=== PATIENT | female | born 1960 | race Caucasian/White ===

== ENCOUNTER → 2016-05-18 | Day surgery (SDC) | payer MEDICARE, MEDICAID ==
--- NOTE | 2016-05-12 23:07 | HP ---
DATE OF ADMISSION: 05/12/2016 HISTORY OF PRESENT ILLNESS: This is the second orthopedic outpatient admission for surgery for this 55-year- old female who is being brought in for an arthroscopic surgery of the right shoulder. The patient had suffered a strain and tear of the right shoulder rotator cuff, dating back to October of 2015, while she was moving and performing heavy lifting. The patient has a history of previous rotator cuff repair, was doing quite well until this accident occurred. She has gone through conservative treatment program through the orthopedic office, all of which has failed to advances this patient problems and she now has a positive MRI evaluation. She is now being scheduled for arthroscopic surgery of the right shoulder for recurrent rotator cuff tear and scheduled for a repair. Procedures have been outlined to her. She understands the risk and complications involved with that and has consented to the surgery. ALLERGIES: No known drug allergies. PAST MEDICAL HISTORY: This has been a healthy 55-year-old female. CURRENT MEDICATIONS: Include tramadol, hydrocodone 5/325, gabapentin, diclofenac, and Zanaflex 4 mg. PAST SURGICAL HISTORY: Positive. She has had previous right shoulder surgery dating back to 2012. She recently had right knee arthroscopic surgery dating back to January 2016. She notes no anesthesia complications or problems. She notes no medical changes since she had the last anesthesia. Her bleeding history is negative. Blood clot history is negative. SOCIAL HISTORY: Tobacco use. She is quarter pack per day smoker. She is a nondrinker. PHYSICAL EXAMINATION: GENERAL: Today, reveals a well-developed, well-nourished, 55-year-old female in moderate to severe distress. HEAD, EYES, EARS, NOSE, AND THROAT: Normocephalic. NECK: Supple. CHEST: Clear. COR: Regular rhythm and rate. ABDOMEN: Soft. : Intact. EXTREMITIES: Examination of the right shoulder reveals active abduction 110 degrees, active forward flexion 110 degrees, palpation over the greater tuberosity, right shoulder produces severe pain. She has positive Forte with +3 for pain. RADIOLOGY: MRI shows a positive recurrent rotator cuff tear and possible glenoid labral tear of the right shoulder. ASSESSMENT: Recurrent tear; rotator cuff, right shoulder; glenoid labral tear, right shoulder. PLAN: The patient is to undergo surgical arthroscopic surgery with rotator cuff repair and any indicated procedure. The procedures were outlined to the patient. She understands procedures and consent to it. MMODAL /[id number]
[~2016-05-18] MED LIST: Acetaminophen/oxyCODONE 325-5 MG Tab PO PRN; Cyclobenzaprine 10 MG Tab PO PRN; Dexamethasone 4 MG/ML SDV ONE; EPINEPHrine 1:1000 1 MG/ML 30 ML MDV ONE; EPINEPHrine 1:1000 1 MG/ML SDV ONE; HYDROmorphone 0.5 MG/0.5 ML Syringe IVPUSH PRN; Iodine/Sodium Iodide 2% Tincture 30 ML Bottle ONE; Ketorolac 30 MG/ML SDV IVPUSH PRN; Ketorolac 30 MG/ML SDV ONE; Lactated Ringers 1,000 ML IV SCH; Lactated Ringers 1,000 ML ONE; Lidocaine 1% 2 ML ONE; Lidocaine 1% 4 ML ONE; Lidocaine 1%/Sod Bicarbonate in NS 8.4% 1 ML Syringe IV PRN; Meperidine PF 50 MG/ML Syringe IVPUSH PRN; Midazolam 1 MG/ML 2 ML SDV ONE; Morphine 15 MG Tab.ER PO ONE; Neostigmine Methylsulfate 1 MG/ML 5 ML Syringe ONE; Ondansetron 4 MG/2 ML SDV IVPUSH PRN; Ondansetron 4 MG/2 ML SDV ONE; Phenylephrine 1% 10 MG/ML SDV ONE; Phenylephrine/Normal Saline 100 MCG/ML 10 ML Syringe ONE; Propofol 200 MG/20 ML SDV ONE; Rocuronium 50 MG/5 ML Vial ONE; Ropivacaine 0.5% 5 MG/ML 30 ML SDV ONE; Sodium Chloride 0.9% 10 ML Syringe FLUSH PRN; ceFAZolin 1 GM Vial ONE; diphenhydrAMINE 50 MG/ML SDV IVPUSH PRN; ePHEDrine/Normal Saline 25 MG/5 ML Syringe ONE; fentaNYL 100 MCG/2 ML SDV IVPUSH PRN; fentaNYL 100 MCG/2 ML SDV ONE; fentaNYL 250 MCG/5 ML SDV ONE
--- NOTE | 2016-05-18 07:16 | PCM.PREANE ---
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 Respiratory: Reports: no symptoms Cardiovascular: Reports: dyspnea on exertion GI: Reports: no symptoms Other: Reports: none - PHYSICAL ASSESSMENT HR: 62 O2 Sat by Pulse Oximetry: 97 RR: 16 BP: 114/65 Temp: 36.3 C Height: 1.68 m Weight: 83.461 kg NPO Status Date: 05/17/16 NPO Status Time: 00:00 ASA Class: 2 Mental Status: alert & oriented x3 Airway Class: Mallampati = 1 Dentition: Reports: normal dentition Thyro-Mental Finger Breadths: 3 Mouth Opening Finger Breadths: 3 ROM/Head Extension: full Respiratory Status: lungs clear to auscultation bilaterally Cardiovascular Status: regular rate & rhythm, normal S1, S2, no murmur, blood pressure WNL - LAB Values: on chart - ALLERGIES Allergies/Adverse Reactions: Allergies Allergy/AdvReac Type Severity Reaction Status Date / Time No Known Allergies Allergy Verified 05/17/16 15:31 - ANESTHESIA PLAN Preop Beta Josesito: No Anesthesia Type Planned: general anesthesia, regional block (interscalene for post-op pain control) - ACKNOWLEDGEMENTS Pt an appropriate candidate for the planned anesthesia: Yes Alternatives and risks of anesthesia discussed w pt/guardian: Yes Pt/Guardian understands and agree with anesthesia plan: Yes PreAnesthesia Questionnaire HEENT History: Reports: None Cardiovascular History: Reports: None Respiratory History: Reports: None Gastrointestinal History: Reports: GERD Genitourinary History: Reports: None SAL[employer]ERSON [employer] History: Reports: None Neurological History: Reports: None Psychiatric History: Reports: None Endocrine/Metabolic History: Reports: None Hematologic History: Reports: None Immunologic History: Reports: None Oncologic (Cancer) History: Reports: None Dermatologic History: Reports: None - Past Surgical History Head Surgeries/Procedures: Reports: None Musculoskeletal Surgical History: Reports: Other (see below) Other Musculoskeletal Surgeries/Procedures:: R rotator cuff tear and repair - SUBSTANCE USE Smoking Status *Q: Current Every Day Smoker Tobacco Use Within Last Twelve Months: Cigarettes Second Hand Smoke Exposure: Yes Days Per Week of Alcohol Use: 0 Number of Drinks Per Day: 0 Total Drinks Per Week: 0 Recreational Drug Use History: No - HOME MEDS Home Medications: Home Meds Gabapentin [Neurontin] 1 tab PO BID 05/17/16 [History] Hydrocodone/Acetaminophen [Hydrocodon-Acetaminophen 5-325] 1 tab PO QID PRN [History] Omeprazole 20 mg PO DAILY 05/17/16 [History] tiZANidine [Zanaflex] 1 tab PO DAILY 05/17/16 [History] traMADol [Ultram] 1 tab PO TID PRN 05/17/16 [History] - CURRENT (IN HOUSE) MEDS Current Meds: Current Medications Lactated Ringer's (Ringers, Lactated) 1,000 mls @ 125 mls/hr IV ASDIRECTED SANJEEV Stop: 05/18/16 23:00 Lidocaine/Sodium Bicarbonate (Buffered Lidocaine 1% In Ns 8.4%) 0.25 ml IV ONETIME PRN PRN Reason: Prior to IV Start Stop: 05/18/16 18:00 Sodium Chloride (Saline Flush) 10 ml FLUSH ASDIRECTED PRN PRN Reason: Keep Vein Open Stop: 05/18/16 18:00 Discontinued Medications Epinephrine HCl (Adrenalin 1:1000) Confirm Administered Dose 1 mg .ROUTE .STK- MED ONE Stop: 05/18/16 06:45 Fentanyl (Sublimaze) Confirm Administered Dose 100 mcg .ROUTE .STK-MED ONE Stop: 05/18/16 06:55 Lidocaine HCl (Xylocaine-Mpf 1%) Confirm Administered Dose 4 mls @ as directed .ROUTE .STK-MED ONE Stop: 05/18/16 06:55 Midazolam HCl (Versed 1 Mg/Ml) Confirm Administered Dose 2 mg .ROUTE .STK-MED ONE Stop: 05/18/16 06:54 Ropivacaine (Naropin 0.5%) Confirm Administered Dose 30 ml .ROUTE .STK-MED ONE Stop: 05/18/16 06:46
--- NOTE | 2016-05-18 09:17 | PCM.SN ---
- Free Text/Narrative Note: Note: 05/18/2016 0830 119/66 67 96% 12 Surgeon and pt request post-op pain control for right shoulder surgery risk of block failure, facial numbness, site infection, and chronic pain discussed with pt and agreed to proceed. All standard monitors est. EKG, BP, Pulse Ox, 2ml O2 and 2ml versed, 2ml fentanyl pre-op dx. right shoulder pain post-op dx right shoulder arthroscopy pt for interscalene block placement all standard monitors est. pt ID time out performed IV sedation 2ml versed, 2ml fentanyl, 2L NC O2, sterile prep and drape of right neck and shoulder U/S placed with visualization of brachial plexus from clavicle to cricoid local skin infiltration 22ga. Stimplex A insulated needle visualized at brachial plexus nerve stimulator at .9 Savita Amps stop at .3 Savita Amps with good bicep twitch with 1ml NaCl and lose of twitch neg aspirations every 5ml of 0.5% ropivacaine and 1:200,000 epi total of 30ml injected all done with U/S guidance needle withdrawn no complications noted pt tolerated procedure well block settling in start procedure at 0730 end procedure at 0747 117/64 97% 65 13
--- NOTE | 2016-05-18 11:34 | PCM.POSTAN ---
POST ANESTHESIA ASSESSMENT - MENTAL STATUS Mental Status: alert, oriented - VITAL SIGNS Pulse Rate: 100 SaO2: 93 Resp Rate: 16 Blood Pressure: 114/74 Temperature: 36.2 C - CARDIOVASCULAR CV Status: pulse rate WNL, blood pressure stable - GASTROINTESTINAL GI Status: no symptoms - PAIN Pain Score: 0 - POST OP HYDRATION Hydration Status: adequate & stable (uneventful general anesthetic )
--- NOTE | 2016-05-18 13:03 | OR ---
DATE OF OPERATION: 05/18/2016 SURGEON: Macho Brandt MD PREOPERATIVE DIAGNOSIS: 1. Chronic recurrent rotator cuff tear, right shoulder. 2. Biceps tendon tear, right shoulder. 3. Adhesions, right shoulder joint. 4. Generalized adhesions, intra-articular, right shoulder joint. 5. Recurrent acromial exostosis formation, right shoulder. POSTOPERATIVE DIAGNOSIS: 1. Chronic recurrent rotator cuff tear, right shoulder. 2. Biceps tendon tear, right shoulder. 3. Adhesions, right shoulder joint. 4. Generalized adhesions, intra-articular, right shoulder joint. 5. Recurrent acromial exostosis formation, right shoulder. ANESTHESIA: General. OPERATION PERFORMED: 1. Right shoulder arthroscopic debridement and lysis of adhesions, intra- articular, acromial space. 2. Arthroscopic partial acromionectomy. 3. Mini-open right shoulder rotator cuff repair. 4. Open biceps tenodesis, right shoulder. 5. Manipulation under anesthesia and lysis of adhesions, right shoulder. DESCRIPTION OF PROCEDURE: The patient was taken to the operating room in supine position and was placed under a general anesthesia. The patient was then placed in a sitting position for arthroscopic evaluation of the right shoulder joint. After the patient was positioned, the operation proceeded with prepping and draping of the right shoulder by standard technique. After prepping and draping, the operation proceeded with a posterior portal being developed. The arthroscope was introduced into the joint. Initial inspection found major adhesion formations within the joint area. There was a large rotator cuff tear where previous repair had been attempted and also there was tearing of the biceps tendon. Subscapularis tendon was intact. The operation, after identification of the pathology, proceeded with debridement of the shoulder joint and then proceeded ahead with a planned open biceps tenodesis. The biceps tenodesis was marked with a 2-0 Prolene and then released from the glenoid area. Then, the operation proceeded with final debridement intra-articularly of any loose fibrous adhesion bands present. Also, of note, the glenohumeral joint showed severe osteochondrosis, especially involving the humeral head. The glenoid with moderate osteochondrosis changes. With the intra-articular portion completed, the operation then proceeded to the subacromial space. Adhesions here were released and debrided. The acromion itself showed a formation of more of an anterior hook again. This was removed via partial acromionectomy. The area of the rotator cuff was debrided, and the operation then proceeded with withdrawal of the instruments after satisfied and bleeding was controlled with electrocautery. The operation proceeded with the mini-open incision being placed off the anterior portion of the acromion, penetrating through the skin and subcutaneous tissues. The deltoid was then split, coming down onto the greater tuberosity and the bicipital foramen. The previously marked biceps tendon was drawn through the foramen using a hemostat with the sutures securing the end. Once the biceps tendon was removed from the foramen, the operation proceeded with a biceps tenodesis into the proximal humerus using the Arthrex system. An 8 x 23 mm screw was used to fixate the tendon. It was securely fixed and then the operation proceeded with irrigation of wound area. The area of the recurrent rotator cuff tear found the previous sutures torn. The debridement was carried out on the greater tuberosity. There was a split going medially on the tendon itself, along with avulsion off the greater tuberosity in the area of the previous repair. The split area was sharply debrided. The edges were then closed using an inverted #2 FiberWire. Three sutures were used to close the split. Then, the operation proceeded with the SpeedBridge being used to reattach remaining portion of the rotator cuff back on the greater tuberosity. Once the rotator cuff was attached to the bleeding-type cortical bone, the area was palpated. The undersurface of the acromion was found to be nice and smooth. The rotator cuff was nice and solid. The biceps tendon also remained in good position. The area was then thoroughly irrigated. The operation proceeded with closure of the deltoid interval with #1 Vicryl, subcutaneous tissue with 2-0 Vicryl, and skin with skin lamonte. Standard dressings were applied to the shoulder. The patient tolerated this procedure well and left the operating room in stable condition to room for recovery. ESTIMATED BLOOD LOSS: MMODAL /[id number]
[2016-05-18 13:09] VITALS: BP 106/57
--- NOTE | 2016-05-18 13:32 | PCM48HPAN ---
Post Anesthesia Note - EVALUATION WITHIN 48HRS OF ANESTHETIC Vital Signs in Normal Range: Yes Patient Participated in Evaluation: Yes Respiratory Function Stable: Yes Airway Patent: Yes Cardiovascular Function Stable: Yes Hydration Status Stable: Yes Pain Control Satisfactory: Yes Nausea and Vomiting Control Satisfactory: Yes Mental Status Recovered: Yes - COMMENTS/OBSERVATIONS Free Text/Narrative:: Right arm continues to be numb from block. Pain 0/0. Discharged to home.
== END | disposition home or self-care (01) ==
LOC: JD.SDS 06:52
PROVIDERS: ATTEND Specialist
DX: M75.101 Unspecified rotator cuff tear or rupture of right shoulder, not specified as traumatic (principal); M75.01 Adhesive capsulitis of right shoulder; M89.9 Disorder of bone, unspecified; Z79.899 Other long term (current) drug therapy; F17.210 Nicotine dependence, cigarettes, uncomplicated; Z98.890 Other specified postprocedural states
CPT/HCPCS: 23410; 23430; A9270; C1713; J0171; J0690; J1100; J1885; J2250; J2370; J2405; J2710; J2795; J3010; J7050; J7120; 01630; 64415; J2704

== ENCOUNTER 2016-06-19 22:57 | Emergency (ER) | payer MEDICARE, MEDICAID ==
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
[2016-06-19 23:24] VITALS: BP 121/54
--- NOTE | 2016-06-20 17:45 | CR ---
Left humerus: Two views of the left humerus were obtained. No fracture or other bony abnormality is appreciated. Linear density seen on one view within the soft tissues felt to represent overlapping density. Impression: 1. No abnormality is identified on two-view left humerus study. Diagnostic code #1
== END 2016-06-20 02:30 | disposition home or self-care (01) ==
LOC: JD.ED 22:57
DX: M75.102 Unspecified rotator cuff tear or rupture of left shoulder, not specified as traumatic (principal); F22 Delusional disorders; F17.200 Nicotine dependence, unspecified, uncomplicated; K21.9 Gastro-esophageal reflux disease without esophagitis; F20.9 Schizophrenia, unspecified; Z79.899 Other long term (current) drug therapy
CPT/HCPCS: 36415; 73060; 80053; 80306; 83735; 84443; 85025; 99284; G0480; 99282

== ENCOUNTER 2016-08-02 03:37 | Emergency (ER) | payer MEDICARE, MEDICAID ==
[2016-08-02 03:48] VITALS: BP 93/77
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
--- NOTE | 2016-08-02 12:40 | CR ---
Right knee: AP, lateral and sunrise patellar views of the right knee were obtained. Comparison: No previous knee exam. Mild to moderate medial joint space narrowing is seen. Moderate joint space narrowing also noted within the lateral patellofemoral joint. Small joint effusion is seen. Small osteophytes noted off the patella and off the medial and lateral tibia. No acute fracture or other abnormality is seen. Impression: 1. Mild to moderate degenerative change as described above. 2. Small joint effusion. Diagnostic code #3
--- NOTE | 2016-08-02 12:41 | CR ---
Right fourth finger: Four views of the right fourth finger were obtained. Comparison: No previous finger study. Mild joint space narrowing is noted within the DIP joint. Slight osteophytes are noted within the DIP joint of the adjacent third finger. No acute fracture or other bony abnormality is identified. Impression: 1. Mild degenerative change within the DIP joint. 2. No acute bony abnormality is identified on four view right fourth finger study. Diagnostic code #2
== END 2016-08-02 05:52 | disposition home or self-care (01) ==
LOC: JD.ED 03:37
DX: M25.561 Pain in right knee (principal); M79.644 Pain in right finger(s); K21.9 Gastro-esophageal reflux disease without esophagitis; F20.9 Schizophrenia, unspecified; Z98.890 Other specified postprocedural states; F17.210 Nicotine dependence, cigarettes, uncomplicated; Z79.899 Other long term (current) drug therapy
CPT/HCPCS: 73140-26-F8; 73140-F8; 73562-26-RT; 73562-RT; 99283; 99284

== ENCOUNTER 2016-10-17 05:02 | Emergency (ER) | payer MEDICAID, MEDICARE ==
[2016-10-17 05:11] VITALS: BP 131/115
--- NOTE | 2016-10-17 05:24 | EDM.PDOC ---
ED HPI GENERAL MEDICAL PROBLEM - General Chief Complaint: Lower Extremity Injury/Pain Stated Complaint: RIGHT KNEE PAIN Time Seen by Provider: 10/17/16 05:09 Source of Information: Reports: Patient History Limitations: Reports: No Limitations - History of Present Illness INITIAL COMMENTS - FREE TEXT/NARRATIVE: This is a 55-year-old female. She comes to the morning because her right knee is hurting her and she has some swelling. She says that she was walking around a lot yesterday and then last night when she went to sleep she began having some burning in her knee through the posterior part of the knee was tender and she noted some swelling and it hurts to walk on. She ambulated into the ER however. She says that she had an injection in her right knee back in January 2016 and she can no longer have any more injections. She states she did not fall down and she did not twist her knee that she is aware of. Right Knee Pain Score (Numeric/FACES): 10 - Related Data Allergies Allergy/AdvReac Type Severity Reaction Status Date / Time No Known Allergies Allergy Verified 10/17/16 05:10 Home Meds: Home Meds Gabapentin [Neurontin] 1 tab PO BID 05/17/16 [History] Omeprazole 20 mg PO DAILY 05/17/16 [History] tiZANidine [Zanaflex] 1 tab PO BID 05/17/16 [History] Cyclobenzaprine [Flexeril] 10 mg PO TID PRN 10/17/16 [History] Hydrocodone/Acetaminophen [Hydrocodon-Acetaminophen 5-325] 1 tab PO Q6H PRN [History] Past Medical History HEENT History: Reports: None Cardiovascular History: Reports: None Respiratory History: Reports: None Gastrointestinal History: Reports: GERD Genitourinary History: Reports: None [employer] History: Reports: None Neurological History: Reports: None Psychiatric History: Reports: Psych Hospitalization(s), Psychosis, Schizophrenia Endocrine/Metabolic History: Reports: None Hematologic History: Reports: None Immunologic History: Reports: None Oncologic (Cancer) History: Reports: None Dermatologic History: Reports: None - Past Surgical History Head Surgeries/Procedures: Reports: None Musculoskeletal Surgical History: Reports: Shoulder Replacement Social & Family History - Tobacco Use Smoking Status *Q: Never Smoker Years of Tobacco use: 20 Packs/Tins Daily: 0.5 Used Tobacco, but Quit: No Second Hand Smoke Exposure: No - Caffeine Use Caffeine Use: Reports: None - Alcohol Use Days Per Week of Alcohol Use: 0 Number of Drinks Per Day: 0 Total Drinks Per Week: 0 - Recreational Drug Use Recreational Drug Use: No Drug Use in Last 12 Months: No - Living Situation & Occupation Living situation: Reports: Single, Alone Occupation: Unemployed Review of Systems - Review of Systems Review Of Systems: See Below Constitutional: Denies: Chills, Fever Eyes: Reports: No Symptoms Ears: Reports: No Symptoms Nose: Reports: No Symptoms Mouth/Throat: Reports: No Symptoms Respiratory: Denies: Shortness of Breath Cardiovascular: Denies: Chest Pain GI/Abdominal: Denies: Abdominal Pain Musculoskeletal: Reports: Joint Pain, Joint Swelling, Other (Right knee) Skin: Reports: No Symptoms Neurological: Reports: No Symptoms ED EXAM, GENERAL - Physical Exam Exam: See Below Exam Limited By: No Limitations General Appearance: Alert, WD/WN, No Apparent Distress Ears: Normal External Exam Nose: Normal Inspection Throat/Mouth: Normal Inspection, Normal Lips, Normal Voice, No Airway Compromise Head: Normocephalic Neck: Supple Respiratory/Chest: No Respiratory Distress GI/Abdominal: No: Distended Back Exam: Full Range of Motion Extremities: Other (Right knee does show a suprapatellar swelling, movement of the patella and grind is positive, negative anterior and posterior drawer sign, the collateral ligaments medial lateral lower nontender on stressing and non-lax , she does have some mild tenderness with palpation of the posterior side of the knee, she is able to bend the knee to 90 for this evaluation) Neurological: Alert, Oriented Psychiatric: Normal Affect, Normal Mood Skin Exam: Warm, Dry Course - Vital Signs Last Recorded V/S: Last Vital Signs Temp 97.6 F 10/17/16 05:08 Pulse 94 10/17/16 05:08 Resp 16 10/17/16 05:08 BP 131/115 H 10/17/16 05:08 Pulse Ox 95 10/17/16 05:08 - Orders/Labs/Meds Orders: Active Orders 24 hr Category Date Time Status Knee Min 4V Rt [CR] Stat Exams 10/17/16 05:18 Taken - Radiology Interpretation Free Text/Narrative:: X-ray results of the right knee show no fractures - Re-Assessments/Exams Free Text/Narrative Re-Assessment/Exam: 10/17/16 06:26 I spoke to the patient regarding her x-ray results. I'll refer her to Dr. Champagne for further evaluation and treatment. Departure - Departure Time of Disposition: 06:27 Disposition: Home, Self-Care 01 Condition: Fair Clinical Impression: Right knee pain Qualifiers: Chronicity: acute Qualified Code(s): M25.561 - Pain in right knee Right knee sprain Qualifiers: Encounter type: initial encounter Involved ligament of knee: unspecified ligament Qualified Code(s): S83.91XA - Sprain of unspecified site of right knee , initial encounter - Discharge Information Referrals: Maciel Cr MD [Primary Care Provider] - Andrea Champagne MD [Physician] - Forms: ED Department Discharge Additional Instructions: Gentle activity with the right knee, take [id number] medications such as ibuprofen or Aleve or Tylenol for the pain, follow-up with Dr. Champagne' by calling his office Tuesday for an appointment, return to the ER if needed - My Orders Last 24 Hours: My Active Orders 10/17/16 05:18 Knee Min 4V Rt [CR] Stat - Assessment/Plan Last 24 Hours: My Active Orders 10/17/16 05:18 Knee Min 4V Rt [CR] Stat
--- NOTE | 2016-10-17 13:55 | CR ---
Right knee: Four views of the right knee were obtained. Comparison: Previous right knee exam of 08/02/16. Small joint effusion is seen. This appears similar to prior exam. Moderate medial joint space narrowing is noted within the right knee. Lateral joint compartment is maintained. Mild spurring is noted within the patella. No acute bony abnormality is identified. Impression: 1. Joint effusion and degenerative change. Findings are fairly stable from previous exam. Diagnostic code #3
== END 2016-10-17 06:27 | disposition home or self-care (01) ==
LOC: JD.ED 05:02
DX: S83.91XA Sprain of unspecified site of right knee, initial encounter (principal); K21.9 Gastro-esophageal reflux disease without esophagitis; F20.9 Schizophrenia, unspecified; Z79.899 Other long term (current) drug therapy; Z96.619 Presence of unspecified artificial shoulder joint; X58.XXXA Exposure to other specified factors, initial encounter
CPT/HCPCS: 73564-26-RT; 73564-RT; 99282; 99283

== ENCOUNTER 2018-07-04 10:49 | Emergency (ER) | payer MEDICARE, MEDICAID ==
--- NOTE | 2018-07-04 11:37 | EDM.PDOCBH ---
ED HPI GENERAL MEDICAL PROBLEM - General Chief Complaint: Behavioral/Psych Stated Complaint: MENTAL EVAL Time Seen by Provider: 07/04/18 11:07 Source of Information: Reports: Patient, Police History Limitations: Reports: No Limitations - History of Present Illness INITIAL COMMENTS - FREE TEXT/NARRATIVE: 57 y/o female presents to ER accompanied by police for evaluation of delusions. surveillance dual rate officer states she called the call center 15 times in the past 24 hours. She was concerned " people were in her house trying to get her." She denies any suicidal ideation or homicidal ideation. She has a history of psychiatric issues and has been seen numerous times for similar occurrences. She is corporative at this time and is willing to voluntarily commit herself. She does have a history of chronic pain and is under pain management in [place]. She is in no apparent distress at this time. She denies any visual or auditory hallucinations at this time. Onset Date: 07/03/18 Onset Time: 09:00 Improves with: Reports: None Worsens with: Reports: None Associated Symptoms: Reports: Confusion, Other (delusional ) Left Back Pain Score (Numeric/FACES): 10 - Related Data Allergies Allergy/AdvReac Type Severity Reaction Status Date / Time No Known Allergies Allergy Verified 07/04/18 11:02 Home Meds: Home Meds Gabapentin [Neurontin] 1 tab PO BID 05/17/16 [History] Omeprazole 20 mg PO DAILY 05/17/16 [History] tiZANidine [Zanaflex] 1 tab PO BID 05/17/16 [History] Past Medical History HEENT History: Reports: None, Impaired Vision Cardiovascular History: Reports: None Respiratory History: Reports: None Gastrointestinal History: Reports: Cholelithiasis, GERD Genitourinary History: Reports: None [employer] History: Reports: None, Neurological History: Reports: None Psychiatric History: Reports: Psych Hospitalization(s), Psychosis, Schizophrenia Other Psychiatric History: Has been to [place], denies being schizophrenic Endocrine/Metabolic History: Reports: None Hematologic History: Reports: None Immunologic History: Reports: None Oncologic (Cancer) History: Reports: None Dermatologic History: Reports: None - Infectious Disease History Infectious Disease History: Reports: None - Past Surgical History Head Surgeries/Procedures: Reports: None HEENT Surgical History: Reports: Oral Surgery Cardiovascular Surgical History: Reports: None Respiratory Surgical History: Reports: None GI Surgical History: Reports: Cholecystectomy Musculoskeletal Surgical History: Reports: Shoulder Replacement Other Musculoskeletal Surgeries/Procedures:: rotator cuff repair x 2 Social & Family History - Family History Family Medical History: Noncontributory HEENT: Reports: None Cardiac: Reports: None Respiratory: Reports: None GI: Reports: None : Reports: None OBGYN: Reports: None Musculoskeletal: Reports: None Neurological: Reports: None Psychiatric: Reports: None Endocrine/Metabolic: Reports: None Hematologic: Reports: None Immunologic: Reports: None Dermatologic: Reports: None Oncologic: Reports: None - Tobacco Use Smoking Status *Q: Current Every Day Smoker Years of Tobacco use: 25 Packs/Tins Daily: 0.5 - Caffeine Use Caffeine Use: Reports: Coffee - Recreational Drug Use Recreational Drug Use: No - Living Situation & Occupation Living situation: Reports: Single, Alone Occupation: Unemployed ED ROS GENERAL - Review of Systems Review Of Systems: See Below Constitutional: Denies: Fever, Chills HEENT: Reports: No Symptoms Respiratory: Denies: Shortness of Breath Cardiovascular: Denies: Chest Pain Endocrine: Reports: No Symptoms GI/Abdominal: Reports: No Symptoms : Reports: No Symptoms Musculoskeletal: Reports: No Symptoms Skin: Reports: No Symptoms Neurological: Reports: No Symptoms Psychiatric: Reports: Anxiety, Hallucinations, Other (patient reports there were people in her house, therefore she called police.). Denies: Homicidal Ideation, Suicidal Ideation Hematologic/Lymphatic: Reports: No Symptoms Immunologic: Reports: No Symptoms ED EXAM, BEHAVIORAL HEALTH - Physical Exam Exam: See Below Exam Limited By: No Limitations General Appearance: Alert, WD/WN, No Apparent Distress Ears: Normal External Exam, Normal Canal, Hearing Grossly Normal, Normal TMs Nose: Normal Inspection, Normal Mucosa, No Blood Throat/Mouth: Normal Inspection, Normal Lips, Normal Teeth, Normal Gums, Normal Oropharynx, Normal Voice, No Airway Compromise Head: Atraumatic, Normocephalic Neck: Normal Inspection, Supple, Non-Tender Respiratory/Chest: No Respiratory Distress, Lungs Clear, Normal Breath Sounds, No Accessory Muscle Use, Chest Non-Tender Cardiovascular: Normal Peripheral Pulses, Regular Rate, Rhythm, No Edema, No Gallop, No JVD, No Murmur, No Rub GI/Abdominal: Normal Bowel Sounds, Soft, Non-Tender, No Organomegaly, No Distention, No Abnormal Bruit, No Mass, Pelvis Stable Back Exam: Normal Inspection, Full Range of Motion Extremities: Normal Inspection, Normal Range of Motion, Non-Tender, No Pedal Edema, Normal Capillary Refill Neurological: Alert, Normal Mood/Affect, Normal Cognition, Normal Gait, Oriented x 3 Psychiatric: Alert, Normal Affect, Normal Cognition, Normal Mood, Oriented. No : Homicidal Thoughts, Suicidal Thoughts Skin Exam: Warm, Dry, Intact, Normal color, No rash COURSE, BEHAVIORAL HEALTH COMP - Course Vital Signs: Last Vital Signs Temp 97.2 F 07/04/18 11:07 Pulse 94 07/04/18 11:07 Resp 16 07/04/18 11:07 BP 142/85 H 07/04/18 11:07 Pulse Ox 94 L 07/04/18 11:07 Orders, Labs, Meds: Laboratory Tests 07/04/18 07/04/18 07/04/18 Range/Units 11:30 11:30 11:30 WBC 7.91 (3.98-10.04) K/mm3 RBC 4.59 (3.98-5.22) M/mm3 Hgb 14.5 D (11.2-15.7) gm/L Hct 44.0 (34.1-44.9) % MCV 95.9 H (79.4-94.8) fl MCH 31.6 (25.6-32.2) pg MCHC 33.0 (32.2-35.5) g/dl RDW Std Deviation 46.1 (36.4-46.3) fL Plt Count 355 (182-369) K/mm3 MPV 9.2 L (9.4-12.3) fl Neut % (Auto) 50.2 (34.0-71.1) % Lymph % (Auto) 39.1 (19.3-51.7) % [place] % (Auto) 7.0 (4.7-12.5) % Eos % (Auto) 2.1 (0.7-5.8) Baso % (Auto) 1.0 (0.1-1.2) % Neut # (Auto) 3.97 (1.56-6.13) K/mm3 Lymph # (Auto) 3.09 (1.18-3.74) K/mm3 [place] # (Auto) 0.55 H (0.24-0.36) K/mm3 Eos # (Auto) 0.17 (0.04-0.36) K/mm3 Baso # (Auto) 0.08 (0.01-0.08) K/mm3 Sodium 144 (136-145) mEq/L Potassium 3.8 (3.5-5.1) mEq/L Chloride 105 (98-107) mEq/L Carbon Dioxide 22 (21-32) mEq/L Anion Gap 20.8 H (5-15) BUN 12 (7-18) mg/dL Creatinine 0.5 L (0.55-1.02) mg/dL Est Cr Clr Drug Dosing 119.01 mL/min Estimated GFR (MDRD) > 60 (>60) mL/min BUN/Creatinine Ratio 24.0 H (14-18) Glucose 121 H (74-106) mg/dL Calcium 9.6 (8.5-10.1) mg/dL Total Bilirubin 0.4 (0.2-1.0) mg/dL AST 51 H (15-37) U/L ALT 94 H (14-59) U/L Alkaline Phosphatase 100 (46-116) U/L Total Protein 7.5 (6.4-8.2) g/dl Albumin 3.9 (3.4-5.0) g/dl Globulin 3.6 gm/dL Albumin/Globulin Ratio 1.1 (1-2) TSH 3rd Generation 0.989 (0.358-3.74) uIU/mL Salicylates 14.0 (2.8-20) mg/dL Urine Opiates Screen (FQYJSZ=685) Ur Buprenorphine Scrn (CUTOFF=10) Ur Oxycodone Screen (MMQ7WF=646) Urine Methadone Screen (DTSUYV=565) Ur Propoxyphene Screen (AUPEJG=978) Acetaminophen 0 L (10-30) ug/mL Ur Barbiturates Screen (JJMRUP=818) Ur Tricyclics Screen (TWETJC=454) Ur Phencyclidine Scrn (CUTOFF=25) Ur Amphetamine Screen (NKTQFQ=996) U Methamphetamines Scrn (WQCNWQ=401) U Benzodiazepines Scrn (YXIACL=652) U Cocaine Metab Screen (WRWJQT=494) U Marijuana (THC) Screen (CUTOFF=50) Ethyl Alcohol 0.02 (0.00) gm% 07/04/18 Range/Units 12:00 WBC (3.98-10.04) K/mm3 RBC (3.98-5.22) M/mm3 Hgb (11.2-15.7) gm/L Hct (34.1-44.9) % MCV (79.4-94.8) fl MCH (25.6-32.2) pg MCHC (32.2-35.5) g/dl RDW Std Deviation (36.4-46.3) fL Plt Count (182-369) K/mm3 MPV (9.4-12.3) fl Neut % (Auto) (34.0-71.1) % Lymph % (Auto) (19.3-51.7) % [place] % (Auto) (4.7-12.5) % Eos % (Auto) (0.7-5.8) Baso % (Auto) (0.1-1.2) % Neut # (Auto) (1.56-6.13) K/mm3 Lymph # (Auto) (1.18-3.74) K/mm3 [place] # (Auto) (0.24-0.36) K/mm3 Eos # (Auto) (0.04-0.36) K/mm3 Baso # (Auto) (0.01-0.08) K/mm3 Sodium (136-145) mEq/L Potassium (3.5-5.1) mEq/L Chloride (98-107) mEq/L Carbon Dioxide (21-32) mEq/L Anion Gap (5-15) BUN (7-18) mg/dL Creatinine (0.55-1.02) mg/dL Est Cr Clr Drug Dosing mL/min Estimated GFR (MDRD) (>60) mL/min BUN/Creatinine Ratio (14-18) Glucose (74-106) mg/dL Calcium (8.5-10.1) mg/dL Total Bilirubin (0.2-1.0) mg/dL AST (15-37) U/L ALT (14-59) U/L Alkaline Phosphatase (46-116) U/L Total Protein (6.4-8.2) g/dl Albumin (3.4-5.0) g/dl Globulin gm/dL Albumin/Globulin Ratio (1-2) TSH 3rd Generation (0.358-3.74) uIU/mL Salicylates (2.8-20) mg/dL Urine Opiates Screen Negative (QOKHBF=826) Ur Buprenorphine Scrn Negative (CUTOFF=10) Ur Oxycodone Screen Negative (YHL9AK=646) Urine Methadone Screen Negative (QWWHHO=975) Ur Propoxyphene Screen Negative (TWIVBZ=108) Acetaminophen (10-30) ug/mL Ur Barbiturates Screen Negative (RFEIND=417) Ur Tricyclics Screen Negative (HHPKZA=203) Ur Phencyclidine Scrn Negative (CUTOFF=25) Ur Amphetamine Screen Negative (TNFCLQ=806) U Methamphetamines Scrn Negative (FZJXYO=023) U Benzodiazepines Scrn Negative (FBCURJ=425) U Cocaine Metab Screen Negative (VNQEHI=000) U Marijuana (THC) Screen Negative (CUTOFF=50) Ethyl Alcohol (0.00) gm% Re-Assessment/Re-Exam: 07/04/18 1200 WBC 7.91 RBC 4.59 H & H 14.5/44.0 salicylates 14.0. Patient watching TV no signs of distress. 07/04/18 1235 NA+ 144 K+ 3.8 CHL 105 CO2 22 BUN 12 CREATINE 0.5 GLUCOSE 121 alcohol level 0.02 UDS negative. Acetamine L. She is medically cleared for behavior health evaluation. Medical Clearance: 07/04/18 12:37 She is medically cleared. 07/04/18 13:43 still waiting for evaluation by [facility]. 07/04/18 14:45 [facility] at bedside evaluating patient. 07/04/18 15:32 She was evaluated by [facility] and found not committable at this time. They recommend she follow up with Dr. Giang on July 26, 2018 at 0730. I discussed this matter with Monik our drug abuse social worker. I did inform the police department and that she would be discharge, they were upset that she was not being committed. I instructed her to follow up with Dr. Giang as scheduled. Instructed to return to the ER for any new or acute worsening symptoms. She verbalized understanding and is comfortable with plan for discharge. Departure - Departure Time of Disposition: 15:30 Disposition: Home, Self-Care 01 Condition: Good Clinical Impression: Hallucinations - Discharge Information Referrals: PCP,None [Primary Care Provider] - Forms: ED Department Discharge Additional Instructions: You have been diagnosis with hallucination tendency. You are to follow up with Dr. Giang July 26, 2018 at 0730 am. Follow up with your PCP. Return to the ER for any new or acute worsening symptoms.
[2018-07-04 12:08] LABS: ACETAMINOPHEN 0 ug/mL (10-30)
[2018-07-04 15:39] VITALS: BP 139/91
== END 2018-07-04 15:35 | disposition home or self-care (01) ==
LOC: JD.ED 10:49
DX: R44.1 Visual hallucinations (principal); K21.9 Gastro-esophageal reflux disease without esophagitis; F17.210 Nicotine dependence, cigarettes, uncomplicated; Z79.899 Other long term (current) drug therapy
CPT/HCPCS: 36415; 80053; 80306; 84443; 85025; 99285; G0480

== ENCOUNTER 2020-05-30 17:34 | Emergency (ER) | payer MEDICARE, MEDICAID ==
[2020-05-30] MEDS ORDERED: HYDROmorphone 1 MG/ML Syringe IM ONE (18:41)
[2020-05-30] MEDS ORDERED: Dexamethasone 10 MG/ML SDV IM ONE (18:41)
--- NOTE | 2020-05-30 19:09 | EDM.PDOC ---
ED HPI GENERAL MEDICAL PROBLEM - General Chief Complaint: Lower Extremity Injury/Pain Stated Complaint: R LEG AND BACK PAIN Time Seen by Provider: 05/30/20 18:02 Source of Information: Reports: Patient, RN Notes Reviewed History Limitations: Reports: No Limitations - History of Present Illness INITIAL COMMENTS - FREE TEXT/NARRATIVE: Patient is a 59-year-old female who presents to the ED for her low back pain and right leg pain. Patient states that she is been having low back pain for some time but notes it has increased over the last 3 days. She has been in contact with her provider, Dr. Farooq and notes that she has an outpatient MRI scheduled for next week . She states that she has been using the medications that Dr. Farooq has prescribed like gabapentin, and has been using Tylenol as well but nothing seems to be helping much at all. She states she has not slept much due to the pain. States it is kind intermittent but again for the last 3 days it has seemed to have worsened. She is not complaining of any numbness in her saddle region, and she states that she is in a lot of pain, and she did pee her bed, and could not make it to the bathroom in time to have a bowel movements, so she ended up having an accident in her pants. She does note that this was because she was in too much pain and could not get to the bathroom in time. She states that she has been walking with a walker at home to get around the house. She has had no fevers or chills, cough/shortness of breath, nausea/vomiting/diarrhea. Right Back Pain Score (Numeric/FACES): 10 Right Leg Pain Score (Numeric/FACES): 10 - Related Data Allergies Allergy/AdvReac Type Severity Reaction Status Date / Time No Known Allergies Allergy Verified 05/30/20 18:14 Home Meds: Home Meds Gabapentin [Neurontin] 1 tab PO BID 05/17/16 [History] Omeprazole 20 mg PO DAILY 05/17/16 [History] tiZANidine [Zanaflex] 1 tab PO BID 05/17/16 [History] Acetaminophen/HYDROcodone [Cordova 325-5 MG] 1 tab PO Q6H PRN #15 tablet 05/30/20 [Rx] predniSONE 20 mg PO ASDIRECTED #15 tab 05/30/20 [Rx] Past Medical History HEENT History: Reports: Impaired Vision Gastrointestinal History: Reports: Cholelithiasis, GERD 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: Psychiatric History: Reports: Psych Hospitalization(s), Psychosis, Schizophrenia Other Psychiatric History: Has been to [facility], denies being schizophrenic - Past Surgical History HEENT Surgical History: Reports: Oral Surgery GI Surgical History: Reports: Cholecystectomy Musculoskeletal Surgical History: Reports: Shoulder Replacement Other Musculoskeletal Surgeries/Procedures:: rotator cuff repair x 2 Social & Family History - Family History Family Medical History: No Pertinent Family History HEENT: Reports: None Cardiac: Reports: None Respiratory: Reports: None GI: Reports: None : Reports: None OBGYN: Reports: None Musculoskeletal: Reports: None Neurological: Reports: None Psychiatric: Reports: None Endocrine/Metabolic: Reports: None Hematologic: Reports: None Immunologic: Reports: None Dermatologic: Reports: None Oncologic: Reports: None - Tobacco Use Tobacco Use Status *Q: Current Every Day Tobacco User Years of Tobacco use: 38 Packs/Tins Daily: 0.3 - Caffeine Use Caffeine Use: Reports: Coffee - Recreational Drug Use Recreational Drug Use: No - Living Situation & Occupation Living situation: Reports: Single, Alone Occupation: Unemployed Review of Systems - Review of Systems Review Of Systems: Comprehensive ROS is negative, except as noted in HPI. ED EXAM, GENERAL - Physical Exam Exam: See Below Exam Limited By: No Limitations General Appearance: Alert, WD/WN, No Apparent Distress Respiratory/Chest: No Respiratory Distress, Lungs Clear, Normal Breath Sounds, No Accessory Muscle Use, Chest Non-Tender Cardiovascular: Normal Peripheral Pulses, Regular Rate, Rhythm, No Edema Peripheral Pulses: 2+: Dorsalis Pedis (L), Dorsalis Pedis (R) Extremities: Normal Inspection, Normal Capillary Refill, Limited Range of Motion (of right leg d/t pain, R straight leg raise is positive.) Neurological: Alert, Oriented, Normal Cognition, No Motor/Sensory Deficits Psychiatric: Normal Affect, Normal Mood Skin Exam: Warm, Dry, Intact, Normal Color, No Rash Course - Vital Signs Last Recorded V/S: Last Vital Signs Temp 97.6 F 05/30/20 18:09 Pulse 110 H 05/30/20 18:09 Resp 18 05/30/20 18:09 BP 122/77 05/30/20 18:09 Pulse Ox 95 05/30/20 18:09 - Orders/Labs/Meds Meds: Medications Discontinued Medications Generic Name Dose Route Start Last Admin Trade Name Salma PRN Reason Stop Dose Admin Dexamethasone 10 mg 05/30/20 18:41 05/30/20 18:53 Dexamethasone 10 Mg/Ml Sdv IM 05/30/20 18:42 10 mg ONETIME ONE Administration Hydromorphone HCl 1 mg 05/30/20 18:41 05/30/20 18:52 Hydromorphone 1 Mg/Ml Syringe IM 05/30/20 18:42 1 mg ONETIME ONE Administration - Re-Assessments/Exams Free Text/Narrative Re-Assessment/Exam: 05/30/20 18:45 Patient presents to the ED for evaluation of her leg and back pain. It is suspicious for sciatica, we will give her a shot of dexamethasone and 1 mg IM Dilaudid for pain management, we will trial her on a course of prednisone, and give her some outpatient Cordova tablets to see if this helps provide her enough pain relief to make it to her MRI on . 05/30/20 19:19 Patient states that her pain has improved, she is able to move around the bed a little bit more than she was able to when she initially got here. We will discharge her home with a conservative measures and pain management until she can get the MRI on . Departure - Departure Time of Disposition: 19:19 Disposition: Home, Self-Care 01 Condition: Good Clinical Impression: Low back pain Qualifiers: Chronicity: acute Back pain laterality: right Sciatica presence: with sciatica Sciatica laterality: sciatica of right side Qualified Code(s): M54.41 - Lumbago with sciatica, right side - Discharge Information *PRESCRIPTION DRUG MONITORING PROGRAM REVIEWED*: Yes *COPY OF PRESCRIPTION DRUG MONITORING REPORT IN PATIENT JUNG: No Prescriptions: Acetaminophen/HYDROcodone [Cordova 325-5 MG] 1 tab PO Q6H PRN #15 tablet PRN Reason: Pain predniSONE 20 mg PO ASDIRECTED #15 tab Instructions: Sciatica, [id number] Referrals: Yulissa Sutton MD [Primary Care Provider] - Forms: ED Department Discharge Additional Instructions: You were seen in this ER today for your low back pain. You were given a prescription of steroids, and hydrocodone tablets for outpatient management. Management in this ER visit was an injection of pain medication and IM steroids for initial management. Please start the prednisone or steroid prescription tomorrow, you may start the hydrocodone tablets tonight for ongoing pain management. You were given a prescription for a strong pain medication, hydrocodone/acetaminophen 5/325 mg, please take 1 tab every 6 hours as needed for pain not relieved by Tylenol or ibuprofen alone. Please note this medication does contain Tylenol in it, so do not take more than 4000 mg in a 24- hour time span. These medications can be addictive, so please take as few as possible to achieve adequate pain control. These meds can also be quite constipating, recommend that you increase your oral fluid intake and take a stool softener like MiraLAX while taking these medications. Do not drive while taking this medication. Please keep your appointment for your MRI next week , and follow-up with your primary care provider if you are having any ongoing pain management issues prior to that. The ER is not an appropriate place to do chronic pain management. Please return to the ER at any time if symptoms change or worsen. Sepsis Event Note (ED) - Evaluation Sepsis Screening Result: No Definite Risk - Focused Exam Vital Signs: Vital Signs Temp Pulse Resp BP Pulse Ox 05/30/20 18:09 97.6 F 110 H 18 122/77 95
[2020-05-30 20:11] VITALS: BP 150/80; PULSE 88
== END 2020-05-30 19:45 | disposition home or self-care (01) ==
LOC: JD.ED 17:34
DX: M54.41 Lumbago with sciatica, right side (principal); K21.9 Gastro-esophageal reflux disease without esophagitis; Z72.0 Tobacco use; Z79.899 Other long term (current) drug therapy
CPT/HCPCS: 96372; 99283; J1100; J1170

== ENCOUNTER 2023-08-30 20:14 | Inpatient (IN) | payer MEDICARE, MEDICAID ==
[2023-08-30 20:59] LABS: BASOPHILS ABSOLUTE AUTO 0.2 K/mm3 (0.0-0.2); BASOPHILS PERCENT AUTO 0.7 % (0.0-1.0); EOSINOPHILS ABSOLUTE AUTO 0.2 K/mm3 (0.0-0.4); EOSINOPHILS PERCENT AUTO 0.8 % (0.0-6.0); HEMATOCRIT 37.7 % (37.0-47.0); HEMOGLOBIN 12.6 gm/dl (12.0-16.0); IMMATURE GRAN ABSOLUTE AUTO 0.13 K/mm3 (0.00-0.05); IMMATURE GRAN PERCENT AUTO 0.6 % (0.0-0.4); LYMPHOCYTES ABSOLUTE AUTO 3.2 K/mm3 (1.0-4.8); MEAN CORPUSCULAR HEMOGLOBIN 32.7 pg (28.0-32.0); MEAN CORPUSCULAR HGB CONC 33.4 g/dl (32.0-36.0); MEAN CORPUSCULAR VOLUME 97.9 fl (83.0-99.0); MEAN PLATELET VOLUME 9.2 fl (9.4-12.3); MONOCYTES ABSOLUTE AUTO 1.7 K/mm3 (0.0-0.8); MONOCYTES PERCENT AUTO 7.2 % (0.0-8.0); NEUTROPHILS ABSOLUTE AUTO 17.5 K/mm3 (1.8-7.7); NEUTROPHILS PERCENT AUTO 76.7 % (41.0-71.0); PLATELET COUNT,PLT 324 K/mm3 (150-400); RED BLOOD CELL COUNT 3.85 M/mm3 (4.10-5.30); WHITE BLOOD CELL COUNT,WBC 22.82 K/mm3 (3.9-11.3)
[2023-08-30 21:28] LABS: A/G RATIO 1.1 (1-2); ALBUMIN 3.6 g/dl (3.4-5.0); ANION GAP 17.7 (5-15); BILIRUBIN TOTAL 0.5 mg/dL (0.2-1.0); CALCIUM 8.9 mg/dL (8.5-10.1); ETHANOL BLOOD MEDICAL 0.11 gm% (0.00); MAGNESIUM 1.9 mg/dL (1.8-2.4); POTASSIUM,K 3.7 mEq/L (3.5-5.1)
[2023-08-30] MEDS ORDERED: Naloxone 0.4 MG/ML SDV IVPUSH PRN (22:08)
[2023-08-30] MEDS ORDERED: Ondansetron 4 MG/2 ML SDV IV PRN (22:08)
[2023-08-30] MEDS ORDERED: tiZANidine 4 MG Tab PO PRN (22:14)
[2023-08-30] MEDS: Morphine 2 MG/ML SYRINGE IVPUSH PRN (23:34)
[2023-08-31] MEDS: Enoxaparin 40 MG/0.4 ML Syringe SUBCUT SCH (01:14)
[2023-08-31 04:48] LABS: BASOPHILS ABSOLUTE AUTO 0.1 K/mm3 (0.0-0.2); BASOPHILS PERCENT AUTO 0.8 % (0.0-1.0); EOSINOPHILS ABSOLUTE AUTO 0.2 K/mm3 (0.0-0.4); EOSINOPHILS PERCENT AUTO 1.3 % (0.0-6.0); HEMATOCRIT 36.2 % (37.0-47.0); HEMOGLOBIN 12.3 gm/dl (12.0-16.0); IMMATURE GRAN ABSOLUTE AUTO 0.04 K/mm3 (0.00-0.05); IMMATURE GRAN PERCENT AUTO 0.3 % (0.0-0.4); LYMPHOCYTES ABSOLUTE AUTO 3.6 K/mm3 (1.0-4.8); LYMPHOCYTES PERCENT AUTO 30.4 % (24.0-44.0); MEAN CORPUSCULAR HEMOGLOBIN 32.6 pg (28.0-32.0); MEAN PLATELET VOLUME 9.1 fl (9.4-12.3); MONOCYTES ABSOLUTE AUTO 1.6 K/mm3 (0.0-0.8); MONOCYTES PERCENT AUTO 13.1 % (0.0-8.0); NEUTROPHILS ABSOLUTE AUTO 6.5 K/mm3 (1.8-7.7); NEUTROPHILS PERCENT AUTO 54.1 % (41.0-71.0); PLATELET COUNT,PLT 293 K/mm3 (150-400); RED BLOOD CELL COUNT 3.77 M/mm3 (4.10-5.30); WHITE BLOOD CELL COUNT,WBC 11.94 K/mm3 (3.9-11.3)
[2023-08-31] MEDS: Pantoprazole 40 MG Tab.CR PO SCH (05:07)
[2023-08-31] MEDS: Acetaminophen/HYDROcodone 325-5 MG Tab PO PRN (05:07)
[2023-08-31 05:11] LABS: BUN/CREATININE RATIO 13.8 (14-18); CREATININE 0.8 mg/dL (0.55-1.02); EST CRCL DRUG DOSING (CG) 70.01 mL/min
[2023-08-31 06:06] LABS: AMPHETAMINES SCREEN, URINE NEGATIVE (CUTOFF=500); BARBITURATE SCREEN,URINE NEGATIVE (CUTOFF=200); BENZODIAZEPINES SCREEN,URINE NEGATIVE (CUTOFF=150); METHAMPHETAMINES SCREEN, URINE NEGATIVE (CUTOFF=500)
[2023-08-31 06:07] LABS: BUPRENORPHINE SCREEN,URINE NEGATIVE (CUTOFF=10); METHADONE SCREEN, URINE NEGATIVE (CUTOFF=200); OXYCODONE SCREEN,URINE NEGATIVE (CUT0FF=100); THC SCREEN,URINE 20 NG/ML NEGATIVE (CUTOFF=50)
[2023-08-31 07:19] LABS: SLIDE REVIEW ABNORMAL SMEAR
[2023-08-31] MEDS ORDERED: Non-Formulary Medication 1 Each (Omeprazole 20 MG Cap.Cr) PO SCH (08:00)
[2023-08-31] MEDS: Gabapentin 100 MG Cap PO SCH (08:29)
[2023-08-31] MEDS: Gabapentin 600 MG Tab PO SCH (08:29)
[2023-08-31] MEDS: amLODIPine 10 MG Tab PO SCH (08:30)
[2023-08-31] MEDS: Lisinopril 20 MG Tab PO SCH (08:32)
[2023-08-31] MEDS: DULoxetine 30 MG Cap PO SCH (08:32)
[2023-08-31] MEDS ORDERED: Gabapentin 600 MG Tab PO SCH (09:00)
[2023-08-31] MEDS: Morphine 2 MG/ML SYRINGE IVPUSH PRN (20:34)
[2023-08-31] MEDS: atorvaSTATin 20 MG Tab PO SCH (20:38)
[2023-08-31] MEDS: Sodium Chloride 0.9% 10 ML Syringe FLUSH SCH (23:45)
[2023-09-01] MEDS ORDERED: Sodium Chloride 0.9% 10 ML Syringe FLUSH PRN (00:01)
[2023-09-01] MEDS: Lactated Ringers 1,000 ML IV SCH (04:34)
[2023-09-01 04:50] LABS: BASOPHILS ABSOLUTE AUTO 0.1 K/mm3 (0.0-0.2); BASOPHILS PERCENT AUTO 0.9 % (0.0-1.0); EOSINOPHILS ABSOLUTE AUTO 0.2 K/mm3 (0.0-0.4); EOSINOPHILS PERCENT AUTO 2.7 % (0.0-6.0); HEMATOCRIT 36.3 % (37.0-47.0); IMMATURE GRAN ABSOLUTE AUTO 0.02 K/mm3 (0.00-0.05); IMMATURE GRAN PERCENT AUTO 0.2 % (0.0-0.4); LYMPHOCYTES ABSOLUTE AUTO 2.2 K/mm3 (1.0-4.8); LYMPHOCYTES PERCENT AUTO 25.8 % (24.0-44.0); MEAN CORPUSCULAR HEMOGLOBIN 32.2 pg (28.0-32.0); MEAN CORPUSCULAR HGB CONC 33.1 g/dl (32.0-36.0); MEAN CORPUSCULAR VOLUME 97.3 fl (83.0-99.0); MEAN PLATELET VOLUME 9.6 fl (9.4-12.3); MONOCYTES ABSOLUTE AUTO 0.9 K/mm3 (0.0-0.8); MONOCYTES PERCENT AUTO 10.8 % (0.0-8.0); NEUTROPHILS ABSOLUTE AUTO 5.1 K/mm3 (1.8-7.7); NEUTROPHILS PERCENT AUTO 59.6 % (41.0-71.0); PLATELET COUNT,PLT 254 K/mm3 (150-400); RED BLOOD CELL COUNT 3.73 M/mm3 (4.10-5.30); WHITE BLOOD CELL COUNT,WBC 8.58 K/mm3 (3.9-11.3)
[2023-09-01 05:22] LABS: BUN/CREATININE RATIO 21.4 (14-18); CALCIUM 9.1 mg/dL (8.5-10.1); CREATININE 0.7 mg/dL (0.55-1.02); EST CRCL DRUG DOSING (CG) 80.01 mL/min
[2023-09-01] MEDS ORDERED: Propofol 200 MG/20 ML SDV ONE ×2 (11:01→12:27)
[2023-09-01] MEDS ORDERED: Midazolam 1 MG/ML 2 ML SDV ONE (11:01)
[2023-09-01] MEDS ORDERED: fentaNYL 100 MCG/2 ML SDV ONE (11:01)
[2023-09-01] MEDS ORDERED: dexmedeTOMIDine HCl 200 MCG/2 ML SDV ONE (12:05)
[2023-09-01] MEDS ORDERED: ceFAZolin 2 GM Vial ONE (12:05)
[2023-09-01] MEDS: Sennosides 8.6 MG Tab PO SCH (15:54)
[2023-09-01] MEDS: LORazepam 2 MG/ML SDV IVPUSH ONE (19:33)
[2023-09-01] MEDS: LORazepam 2 MG/ML SDV IV PRN (22:10)
[2023-09-02 04:57] LABS: BASOPHILS ABSOLUTE AUTO 0.1 K/mm3 (0.0-0.2); BASOPHILS PERCENT AUTO 0.5 % (0.0-1.0); EOSINOPHILS ABSOLUTE AUTO 0.1 K/mm3 (0.0-0.4); HEMOGLOBIN 10.4 gm/dl (12.0-16.0); IMMATURE GRAN ABSOLUTE AUTO 0.05 K/mm3 (0.00-0.05); IMMATURE GRAN PERCENT AUTO 0.4 % (0.0-0.4); LYMPHOCYTES ABSOLUTE AUTO 2.8 K/mm3 (1.0-4.8); LYMPHOCYTES PERCENT AUTO 25.2 % (24.0-44.0); MEAN CORPUSCULAR HEMOGLOBIN 32.7 pg (28.0-32.0); MEAN CORPUSCULAR HGB CONC 33.5 g/dl (32.0-36.0); MEAN CORPUSCULAR VOLUME 97.5 fl (83.0-99.0); MEAN PLATELET VOLUME 9.6 fl (9.4-12.3); MONOCYTES ABSOLUTE AUTO 1.4 K/mm3 (0.0-0.8); MONOCYTES PERCENT AUTO 12.1 % (0.0-8.0); NEUTROPHILS ABSOLUTE AUTO 6.8 K/mm3 (1.8-7.7); NEUTROPHILS PERCENT AUTO 60.8 % (41.0-71.0); PLATELET COUNT,PLT 276 K/mm3 (150-400); RED BLOOD CELL COUNT 3.18 M/mm3 (4.10-5.30); WHITE BLOOD CELL COUNT,WBC 11.21 K/mm3 (3.9-11.3)
[2023-09-02 05:17] LABS: ANION GAP 13.1 (5-15); BUN/CREATININE RATIO 14.3 (14-18); CREATININE 0.7 mg/dL (0.55-1.02); EST CRCL DRUG DOSING (CG) 80.01 mL/min; POTASSIUM,K 4.1 mEq/L (3.5-5.1)
[2023-09-02] MEDS: HYDROmorphone 0.5 MG/0.5 ML Syringe IVPUSH PRN (05:39)
[2023-09-02] MEDS: Polyethylene Glycol 3350 Powder 17 GM Packet PO PRN (09:14)
[2023-09-02] MEDS: Acetaminophen 325 MG Tab PO PRN (12:12)
[2023-09-02] MEDS: Nicotine 14 MG/24 Hr Patch TRDERM SCH (15:15)
[2023-09-03 05:57] LABS: BASOPHILS ABSOLUTE AUTO 0.1 K/mm3 (0.0-0.2); BASOPHILS PERCENT AUTO 0.7 % (0.0-1.0); EOSINOPHILS ABSOLUTE AUTO 0.3 K/mm3 (0.0-0.4); HEMATOCRIT 26.6 % (37.0-47.0); IMMATURE GRAN ABSOLUTE AUTO 0.07 K/mm3 (0.00-0.05); IMMATURE GRAN PERCENT AUTO 0.6 % (0.0-0.4); LYMPHOCYTES ABSOLUTE AUTO 2.5 K/mm3 (1.0-4.8); LYMPHOCYTES PERCENT AUTO 22.7 % (24.0-44.0); MEAN CORPUSCULAR HEMOGLOBIN 32.5 pg (28.0-32.0); MEAN CORPUSCULAR HGB CONC 33.5 g/dl (32.0-36.0); MEAN CORPUSCULAR VOLUME 97.1 fl (83.0-99.0); MEAN PLATELET VOLUME 9.4 fl (9.4-12.3); MONOCYTES ABSOLUTE AUTO 1.3 K/mm3 (0.0-0.8); MONOCYTES PERCENT AUTO 11.6 % (0.0-8.0); NEUTROPHILS ABSOLUTE AUTO 6.6 K/mm3 (1.8-7.7); NEUTROPHILS PERCENT AUTO 61.4 % (41.0-71.0); PLATELET COUNT,PLT 278 K/mm3 (150-400); RED BLOOD CELL COUNT 2.74 M/mm3 (4.10-5.30); WHITE BLOOD CELL COUNT,WBC 10.81 K/mm3 (3.9-11.3)
[2023-09-03 06:01] LABS: HEMOGLOBIN 8.9 gm/dl (12.0-16.0)
[2023-09-03 06:07] LABS: ANION GAP 13.9 (5-15); BUN/CREATININE RATIO 16.7 (14-18); CALCIUM 8.7 mg/dL (8.5-10.1); CREATININE 0.9 mg/dL (0.55-1.02); EST CRCL DRUG DOSING (CG) 62.23 mL/min; POTASSIUM,K 3.9 mEq/L (3.5-5.1)
[2023-09-03 13:15] VITALS: BP 103/53; PULSE 93
== END 2023-09-03 13:05 | disposition home or self-care (01) | DRG 482 ==
LOC: JD.ED 20:14 → JD.MS 22:08
PROVIDERS: ADMIT Student in an Organized Health Care Education/Training Program; ATTEND Student in an Organized Health Care Education/Training Program
PROC: 0QS806Z Reposition Right Femoral Shaft with Intramedullary Internal Fixation Device, Open Approach (ICD-10-PCS; principal; 2023-09-01 11:30)
DX: S72.331A Displaced oblique fracture of shaft of right femur, initial encounter for closed fracture (principal); H54.7 Unspecified visual loss; I10 Essential (primary) hypertension; K21.9 Gastro-esophageal reflux disease without esophagitis; Z96.619 Presence of unspecified artificial shoulder joint; G89.4 Chronic pain syndrome; W01.0XXA Fall on same level from slipping, tripping and stumbling without subsequent striking against object, initial encounter; E78.2 Mixed hyperlipidemia; F41.9 Anxiety disorder, unspecified; Z96.649 Presence of unspecified artificial hip joint; F17.210 Nicotine dependence, cigarettes, uncomplicated; F10.90 Alcohol use, unspecified, uncomplicated; N18.2 Chronic kidney disease, stage 2 (mild); I12.9 Hypertensive chronic kidney disease with stage 1 through stage 4 chronic kidney disease, or unspecified chronic kidney disease; M25.569 Pain in unspecified knee; Z79.899 Other long term (current) drug therapy; Z98.890 Other specified postprocedural states; Z90.49 Acquired absence of other specified parts of digestive tract; X50.1XXA Overexertion from prolonged static or awkward postures, initial encounter
CPT/HCPCS: 01210; 36415; 51701; 51702; 51798; 73502-26-RT; 73502-RT; 73552-26-RT; 73552-RT; 76000; 76000-26; 80048; 80053; 80306; 80307; 83735; 85025; 86850; 86900; 86901; 87641; 93005; 93010; 93306; 94761; 97110-GP; 97161-GP; 97530-GP; 99222; 99231; 99232; 99239; 99285; A9270-GY; C1713; C1758; J0690; J1170; J1650; J2060; J2250; J2270; J2704; J3010; J3490; J7120

== ENCOUNTER 2023-09-30 17:38 | Emergency (ER) | payer MEDICARE, MEDICAID ==
[2023-09-30 18:48] VITALS: BP 117/78; PULSE 81
== END 2023-09-30 18:47 | disposition home or self-care (01) ==
LOC: JD.ED 17:38
DX: M79.604 Pain in right leg (principal); F17.210 Nicotine dependence, cigarettes, uncomplicated; K21.9 Gastro-esophageal reflux disease without esophagitis; Z79.899 Other long term (current) drug therapy; Z79.82 Long term (current) use of aspirin; Z86.16 Personal history of COVID-19
CPT/HCPCS: 99283

== ENCOUNTER 2024-01-07 11:29 | Emergency (ER) | payer MEDICARE, MEDICAID ==
[2024-01-07 15:54] VITALS: BP 144/89; PULSE 88
== END 2024-01-07 13:55 | disposition home or self-care (01) ==
LOC: JD.ED 11:29
DX: M25.551 Pain in right hip (principal); K21.9 Gastro-esophageal reflux disease without esophagitis; M19.90 Unspecified osteoarthritis, unspecified site; Z86.16 Personal history of COVID-19; Z90.49 Acquired absence of other specified parts of digestive tract; Z96.659 Presence of unspecified artificial knee joint; Z79.899 Other long term (current) drug therapy; Z79.82 Long term (current) use of aspirin; Z79.891 Long term (current) use of opiate analgesic
CPT/HCPCS: 73502-26-RT; 73502-RT; 73552-26-RT; 73552-RT; 99283